=== PATIENT | female | born 1980 | race Caucasian/White ===

== ENCOUNTER → 2018-01-07 | Outpatient (CLI) | payer MEDICAID | LOC: CIMAGING 13:05 | PROVIDERS: ATTEND Nurse Practitioner | DX: N63.22 Unspecified lump in the left breast, upper inner quadrant (principal) | CPT/HCPCS: 76641-PO ==

== ENCOUNTER → 2018-03-06 | Outpatient (CLI) | payer MEDICAID ==
[~2018-03-06] MED LIST: BACITRACIN 50,000 UNITS/10 ML SYR IRR ONE; BACITRACIN ZINC 14.2 GM OINTTUBE TP ONE; BUPIVACAINE 0.25% 30 ML SDV ONE; GADOBUTROL 10 ML VIAL IVP ONE; GENTAMICIN SULFATE 80 MG/2 ML VIAL ONE; THROMBIN (BOVINE) 20,000 UNIT SPRAY TP ONE; ceFAZolin 1 GM/5 ML SYR ONE
== END ==
LOC: FIMAGING 11:56
PROVIDERS: ATTEND Surgery
DX: C50.412 Malignant neoplasm of upper-outer quadrant of left female breast (principal)
CPT/HCPCS: 0159T; 77059; A9585; C8908; J1580

== ENCOUNTER 2018-03-07 09:31 | Observation (INO) | payer BC, OTHER, MEDICAID ==
--- NOTE | 2018-03-03 18:01 | GHP ---
DATE OF ADMISSION: 03/07/2018 PREOPERATIVE DIAGNOSIS: Left breast invasive ductal carcinoma. HISTORY OF PRESENT ILLNESS: The patient is a 37-year-old woman with a new diagnosis of left breast c ancer. She first noticed a palpable mass in her left upper outer breast 3 months ago. She had a vane mogram and ultrasound in December, which showed a lobulated solid irregular hypoechoic mass 4.5 x 2.4 x 3.3 cm at the 1 o'clock position 6 cm from the nipple. There were additionally 2 other lesions loca tadeo 1.1 cm medial to the larger lesion. She has a large left axillary lymph node measuring 2.1 x 0.2 cm, probably benign. She had ultrasound-guided biopsy on 02/15/2018, which showed invasive ductal c arcinoma, ER positive, TX positive, HER-2/ivan negative. Ki 67 less than 5%. She previously took bir th control for 21 years and discontinued upon diagnosis. She has a history of fibrocystic breast dis ease. She has a maternal great aunt who was diagnosed with breast cancer at age 55. Her father with B-cell lymphoma at 38. Maternal grandmother had multiple myeloma. Maternal grandfather with brain, pancreatic, prostate, and colon cancer. Her 1st menstrual period at age 15 and she continues to men struate regularly monthly. She has never been . She had genetic testing done which was nega tive for BRCA1 or 2. There was a variant of unknown significance of the POLE mutation. We attempted to order a breast MRI prior to surgery, but this was not authorized. Her oncologist is Dr. Chapin mathews. PAST MEDICAL HISTORY: Migraine headaches. PAST SURGICAL HISTORY: None. MEDICATIONS: No prescription. ALLERGIES: Amoxicillin and sulfa cause hives. FAMILY HISTORY: Cancer as above, coronary artery disease. SOCIAL HISTORY: She is . 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 She reports occasional alcohol u se. No tobacco or recreational drug use. REVIEW OF SYSTEMS: A 10-point review of systems negative aside from HPI. PHYSICAL EXAMINATION: GENERAL: A pleasant, well-developed, well-nourished woman in no acute distres s. HEENT: Normocephalic, atraumatic. No hearing deficits. Pupils equal and round. No scleral ict erus. Mucous membranes moist. NECK: Trachea midline. RESPIRATORY: No increased work of breathing . Clear to auscultation bilaterally. CARDIOVASCULAR: Regular rate and rhythm. No peripheral edema . BREASTS: Exam performed in upright and supine position, evidence of previous biopsy left upper ou ter quadrant, palpable mass. No overlying skin changes. No other palpable masses bilaterally. LYMP HS: Soft palpable mass of left axilla. No right axillary lymphadenopathy. No supraclavicular or ce rvical lymphadenopathy. SKIN: Warm and dry. PSYCH: Mood and affect normal. NEURO: Grossly intac t. IMPRESSION AND PLAN: A 37-year-old woman with new diagnosis of invasive ductal carcinoma of left upp er outer quadrant, palpable. MRI was not obtained. She desires mastectomy with reconstruction. She will undergo a left mastectomy with sentinel lymph node biopsy, possible axillary dissection, follow ed by reconstruction by Dr. Thang Miller. We discussed risks of surgery, including, but not limited t o, heart attack, stroke, blood clots or . We discussed risk of infection, bleeding, damage to s urrounding structures, lymphedema, need for additional procedures, and alteration in cosmesis. She u nderstands the risks and would like to proceed. She will receive antibiotics on-call to the operatin g room. She will stay in overnight observations. Patient additionally seen by Dr. Hlai Thayer. /[id number]/MODL
[2018-03-07] MEDS ORDERED: BUPIVACAINE 0.25% 30 ML SDV ONE ×2 (09:39→13:21)
[2018-03-07] MEDS ORDERED: GENTAMICIN SULFATE 80 MG/2 ML VIAL ONE (09:39)
[2018-03-07] MEDS ORDERED: BACITRACIN 50,000 UNITS/10 ML SYR IRR ONE (09:39)
[2018-03-07] MEDS ORDERED: ceFAZolin 1 GM/5 ML SYR ONE (09:39)
[2018-03-07] MEDS ORDERED: BACITRACIN ZINC 14.2 GM OINTTUBE TP ONE (09:39)
[2018-03-07] MEDS ORDERED: ceFAZolin 2 GM/DEXTROSE 100 ML IV ONE (11:04)
[2018-03-07] MEDS ORDERED: LR 1,000 ML IV ONE (11:05)
--- NOTE | 2018-03-07 11:37 | PDHPUP ---
History & Physical Update H&P update statement: This history and physical update is based on an assessment of the patient which was completed after admission or registration (within 24 hours), but prior to the surgery/procedure. H&P update: H&P reviewed & patient examined, changes noted (question involvement chest wall on MRI)
[2018-03-07] MEDS ORDERED: MIDAZOLAM 2 MG/2 ML VIAL IVP ONE (12:10)
--- NOTE | 2018-03-07 12:10 | PDANEPAE ---
ANE Past Medical History - Cardiovascular History Hx Hypertension: No Hx Arrhythmias: No Hx Chest Pain: No Hx Coronary Artery / Peripheral Vascular Disease: No Hx CHF / Valvular Disease: No Hx Palpitations: No - Pulmonary History Hx COPD: No Hx Asthma/Reactive Airway Disease: No Hx Recent Upper Respiratory Infection: No Hx Oxygen in Use at Home: No Hx Sleep Apnea: No Sleep Apnea Screening Result - Last Documented: Negative - Neurologic History Hx Cerebrovascular Accident: No Hx Seizures: No Hx Dementia: No Neurologic History Comment: migraines with aura's - Endocrine History Hx Diabetes: No Hypothyroid: Yes Hyperthyroid: No Obesity: no Endocrine History Comment: new hypothyroid dx. hypoglycemic - Renal History Hx Renal Disorders: Yes Renal History Comment: frequency - Liver History Hx Hepatic Disorders: No - Neurological & Psychiatric Hx Hx Neurological and Psychiatric Disorders: No - Cancer History Hx Cancer: Yes Cancer History Comment: breast currently - Congenital Disorder History Hx Congenital Disorders: No - GI History GERD: no Hx Gastrointestinal Disorders: No - Other Health History Other Health History: wears glasses/ contacts. new symptoms of eczema - Chronic Pain History Chronic Pain: No - Surgical History Prior Surgeries: n/a ANE Review of Systems Review of Systems: - Exercise capacity Exercise capacity: >=4 METS METS (RN): 4 METS ANE Patient History - Allergies Allergies/Adverse Reactions: amoxicillin Allergy (Verified 02/19/18 11:01) Hives Penicillins Allergy (Verified 02/19/18 11:37) Hives Sulfa (Sulfonamide Antibiotics) Allergy (Verified 02/19/18 11:01) Hives - Home Medications Home Medications: Herbals/Supplements -Info Only 1 ea PO DAILY 02/19/18 [Last Taken 02/28/18] Ibuprofen [Motrin (*)] 200 mg PO DAILY PRN 02/19/18 [Last Taken 02/28/18] Multivitamins [Multivitamin (*)] 1 each PO DAILY 02/19/18 [Last Taken 02/28/18] - NPO status NPO Since - Liquids (Date): 03/07/18 NPO Since - Liquids (Time): 09:00 NPO Since - Solids (Date): 03/06/18 NPO Since - Solids (Time): 22:30 - Anes Hx Hx Anesthesia Complications (with details): no H/O anesthesia - Smoking Hx Smoking Status: Never smoked - Alcohol Use Alcohol Use: Rarely - Family Anes Hx Family Anes Hx: neg - N/A Family Hx Anesthesia Complications: none ANE Labs/Vital Signs - Vital Signs Blood Pressure: 115/85 Heart Rate: 50 Respiratory Rate: 16 O2 Sat (%): 97 Height: 165.1 cm Weight: 63.503 kg ANE Physical Exam - Airway Neck exam: FROM Mallampati Score: Class 3 Mouth exam: normal dental/mouth exam - Pulmonary Pulmonary: no respiratory distress, no rales or rhonchi, clear to auscultation - Cardiovascular Cardiovascular: regular rate and rhythym, no murmur, rub, or gallop - ASA Status ASA Status: II ANE Anesthesia Plan Anesthesia Plan: general endotracheal anesthesia Total IV Anesthesia: No
[2018-03-07] MEDS ORDERED: fentaNYL 100 MCG/2 ML INJ ONE (13:46)
[2018-03-07] MEDS ORDERED: PROPOFOL 200 MG/20 ML VIAL ONE (13:47)
[2018-03-07] MEDS ORDERED: ONDANSETRON 4 MG/2 ML VIAL ONE (13:47)
[2018-03-07] MEDS ORDERED: ROCURONIUM 50 MG/5 ML VIAL ONE (13:48)
[2018-03-07] MEDS ORDERED: LIDOCAINE 2% 5 ML SDV ONE (13:51)
[2018-03-07] MEDS ORDERED: PROPOFOL/EMULSION 500 MG/50 ML BOTTLE IV ONE (14:05)
[2018-03-07] MEDS ORDERED: DEXAMETHASONE 4 MG/ML VIAL ONE ×3 (14:13)
[2018-03-07] MEDS ORDERED: NEOSTIGMINE METHYLSULFATE 5 MG/5 ML SYR ONE (15:17)
[2018-03-07] MEDS ORDERED: GLYCOPYRROLATE 0.2 MG/1 ML VIAL ONE ×3 (15:17)
[2018-03-07] MEDS ORDERED: KETOROLAC 30 MG/1 ML SDV ONE (15:18)
--- NOTE | 2018-03-07 15:54 | GOP ---
DATE OF OPERATION: 03/07/2018 SURGEON: Nestor Miller Jr., MD [place] FACTOR: Milo Smith CST, by surgeon request. ANESTHESIA: General inhalational anesthetic ANESTHESIOLOGIST: Ignacio Mello DO. PREOPERATIVE DIAGNOSIS: Left breast cancer. POSTOPERATIVE DIAGNOSIS: Left breast cancer. PROCEDURE PERFORMED: Left breast reconstruction with tissue rn intake and AlloDerm following nipple s paring mastectomy by Dr. Hali Thayer. FINDINGS: ESTIMATED BLOOD LOSS: During reconstruction: 10 cc. INDICATIONS: Lucia is a 37-year-old white female referred from Dr. Thayer after being diagnosed w ith a large left breast cancer. She was deemed a good candidate for a nipple sparing mastectomy in c onjunction with a sentinel lymph node biopsy. She was deemed an excellent candidate for immediate ti ssue rn intake reconstruction in a prepectoral plane and was taken the operation for that procedure. She was taken the operating room with Dr. Thayer in conjunction for the above procedures. DESCRIPTION OF PROCEDURE: After the risks and benefits of procedure were explained to the patient an d formal operative consent was obtained, she was taken to the operating room by Dr. Thayer where an un complicated left nipple sparing mastectomy was performed. She had positive subareolar margins. A 2n d frozen section was taken. The pocket was irrigated with normal saline. She was redraped with ster ile towels. New instrumentation was utilized, and Allergan 133 FX-12-T 450 cc tissue rn intake was th oroughly tested and filled with 360 cc of air. It was wrapped with AlloDerm thick acellular dermis g raft that had been rinsed and soaked in triple antibiotic saline. It was wrapped on the back table. The pocket was irrigated a 2nd time with triple antibiotic saline solution. The AlloDerm wrapped ti ssue rn intake was then placed into the breast pocket and sutured into place down to the chest wall us ing 2-0 PDS suture. A 15 round drain was placed exiting through a separate lateral stab incision. T wo-layer closure was performed on the mastectomy incision. [place] lymph node mapping was still pen ding, and patient was turned back over to Dr. Thayer pending further evaluation of the lymph nodes. IMPLANTS: Tissue rn intake Allergan 133 FX-12-T 450 cc device filled with 360 cc. DRAINS: 1 FREDDY drain placed. COMPLICATIONS: No complications. /[id number]/MODL
--- NOTE | 2018-03-07 16:09 | GOP ---
DATE OF OPERATION: 03/07/2018 SURGEON: Hali Thayer MD TUBING SUPERVISOR: MIRELLA Galloway ANESTHESIA: General. ANESTHESIOLOGIST: Ignacio Mello DO PREOPERATIVE DIAGNOSIS: Left breast invasive ductal carcinoma, upper outer quadrant. POSTOPERATIVE DIAGNOSIS: Left breast invasive ductal carcinoma, upper outer quadrant. PROCEDURE PERFORMED: Left nipple-sparing mastectomy and left axillary dissection FINDINGS: positive sentinel lymph nodes, positive nipple pad SPECIMENS: Left nipple pad, left mastectomy, left sentinel lymph nodes, and left nipple pad with new margin inked anterior. ESTIMATED BLOOD LOSS: 50 cc. INDICATIONS: The patient is a 37-year-old woman with invasive ductal carcinoma of her breast. She presents for mastectomy. DESCRIPTION OF PROCEDURE: The patient was brought into the operating room, placed supine on the table and general anesthesia was administered. Her breasts were prepped and draped in the usual sterile fashion. I made an inframammary incision and I created a skin flap. I used uterine dilators to help create the plane. I continued my flap to the level of the nipple. I then removed the breast from the pectoralis, paying careful attention to the area beneath the tumor. There was no evidence of tumor penetrating into the pectoralis muscle. My dissection occurred to the sternum, clavicle, inframammary fold, and mid-axillary line. It was inked green anterior, red superior, yellow medial, blue inferior, orange lateral, black posterior, was submitted to Pathology. I then used the sentinel node probe to identify sentinel nodes in her axilla. There were nodes grouped closely together that were firm. I excised these and sent these to Pathology for frozen. The results returned 2 with macroscopic disease and the other with microscopic disease. The background was quiet. Hemostasis was achieved. At this time, we then received notification that the nipple pad was positive. Dr. Miller was then able to take another area of tissue underneath the nipple, and the anterior was inked green. This was submitted to Pathology for frozen. This was also positive. However, Dr. Miller was concerned that the flaps would be compromised if the nipple areolar complex was taken at this time. I then removed a packet of tissue from her left axilla while protecting the axillary vein, long thoracic and thoracodorsal bundle from harm. Hemostasis was achieved. Dr. Miller then completed his portion of the operation. /[id number]/MODL MTDD
[2018-03-07] MEDS ORDERED: HYDROCODONE/APAP 5/325 TAB PO PRN (16:19)
[2018-03-07] MEDS ORDERED: fentaNYL 100 MCG/2 ML INJ IVP PRN (16:19)
[2018-03-07] MEDS ORDERED: ACETAMINOPHEN 500 MG TAB PO PRN (16:19)
[2018-03-07] MEDS ORDERED: NALOXONE HCL 0.4 MG/ML INJ IVP PRN (16:19)
[2018-03-07] MEDS ORDERED: PROMETHAZINE HCL 25 MG/ML INJ IVP PRN (16:19)
[2018-03-07] MEDS ORDERED: oxyCODONE IR 5 MG TAB PO PRN (16:19)
[2018-03-07] MEDS ORDERED: PHENYLEPHRINE HCL 100 MCG/ML SYR IVP PRN (16:19)
[2018-03-07] MEDS ORDERED: LR 500 ML IV PRN (16:19)
[2018-03-07] MEDS ORDERED: ONDANSETRON 4 MG/2 ML VIAL IVP PRN ×2 (16:19→17:30)
[2018-03-07] MEDS ORDERED: HYDROmorphONE/DILAUDID 2 MG/ML INJ IVP PRN (16:19)
--- NOTE | 2018-03-07 16:20 | POSTANESTH ---
Post Anesthetic Evaluation Cardiovascular Status: Similar to Pre-Op Cond (sinus bradycardia (pt baseline)) Respiratory Status: Normal, Stable Level of Consciousness/Mental Status: Can Participate in Eval Pain Control: Adequate, Prn Tx Ordered Nausea/Vomiting Control: Adequate, Prn Tx Ordered Complications Possibly Related to Anesthesia: None Noted
[2018-03-07] MEDS ORDERED: oxyCODONE IR 5 MG TAB ONE (16:55)
[2018-03-07] MEDS ORDERED: ACETAMINOPHEN 500 MG TAB ONE (16:55)
[2018-03-07] MEDS ORDERED: ONDANSETRON DISINTEGRATING 4 MG TAB PO PRN (17:30)
[2018-03-07] MEDS ORDERED: diphenhydrAMINE 25 MG CAP PO PRN (17:30)
[2018-03-07] MEDS ORDERED: ACETAMINOPHEN 325 MG TAB PO PRN (17:30)
[2018-03-07] MEDS ORDERED: HYDROmorphONE/DILAUDID 1 MG/ML INJ IVP PRN (17:31)
[2018-03-07] MEDS ORDERED: IBUPROFEN 600 MG TAB PO PRN (17:32)
[2018-03-07] MEDS: oxyCODONE IR 5 MG TAB PO PRN (20:13)
[2018-03-08] MEDS: oxyCODONE IR 5 MG TAB PO PRN (04:00)
--- NOTE | 2018-03-08 06:57 | SOAPPROG ---
SOAP Progress Note Assessment/Plan: Assessment: POD #1 s/p L mastectomy with L axillary dissection L nipple pad positive for cancer which will need to be addressed in future Doing well DC home with drains F/U with Dr. Miller as tony Thayer in 2 weeks S:Pain controlled. Sore Sitting in bed, appears well CTAB RRR Flap viable FREDDY drains with serosanguinous fluid Plan: 03/08/18 06:55 Objective: Vital Signs Temp Pulse Resp BP Pulse Ox 36.7 C 54 L 16 100/60 94 03/08/18 03:32 03/08/18 03:32 03/08/18 03:32 03/08/18 03:32 03/08/18 03:32 03/07/18 03/08/18 03/09/18 05:59 05:59 05:59 Intake Total 2550 Output Total 2590 Balance -40 ICD10 Worksheet Patient Problems: Problems Problem Status Onset Breast cancer Acute - ICD10 Problem Qualifiers (1) Breast cancer
[2018-03-08 08:35] VITALS: BP 107/62
--- NOTE | 2018-03-08 09:14 | ASDISCHSUM ---
Discharge Information Plan Status:Home with Home Health Medically Cleared to Leave:03/08/2018 Discharge Date:03/08/2018 CM D/C Disposition:Home, Routine, Self-Care ADT D/C Disposition: Projected Discharge Date:03/08/2018 Transportation at D/C: Discharge Delay Reason: Follow-Up Date:03/08/2018 Discharge Slot: Final Diagnosis: Placement Information Patient Contact Information Contact Name:ALEJANDRA Relationship:Other Address: Work Phone: City: [facility] Phone: State/Zip Code: Email: Financial Information Financial Class:Medicaid Primary Plan Desc:MEDICA[employer] HE[employer] Primary Plan Number:[id number] Secondary Plan Desc: Secondary Plan Number: Assessment Information Intervention Information
--- NOTE | 2018-03-08 09:18 | ASMTCMCOM ---
CM Note CM Note Notes: Chart reviewed for dc planning purposes. 37 year old female patient s/p left mastectomy. She has been medically cleared for dc to home with no needs identified. Plan: Home Independent. Date Signed: 03/08/2018 09:18 AM Electronically Signed By:Roxi Emery RN
--- NOTE | 2018-03-13 09:01 | GDS ---
ADMITTING DIAGNOSIS: Left breast invasive ductal carcinoma. SECONDARY DIAGNOSIS: Migraine headaches. REASON FOR ADMISSION: The patient is a 37-year-old woman with a new diagnosis of left breast cancer. She desires mastectomy with reconstruction. She is admitted for planned surgical intervention, observation. HOSPITAL COURSE: She was taken to the operating room on 03/07/2018, by Dr. Hali Thayer for a left mastectomy with left axillary dissection followed by reconstruction by Dr. Miller. FREDDY drains were placed. On postoperative day #1 her pain was well controlled with oral pain medications. She was tolerating regular diet and ambulating independently. She was ready for discharge home. Of note, at the time of the surgery, the left nipple pad was positive for cancer , but this was discussed and will be addressed in the future. DISCHARGE CONDITION: She is being discharged home in stable condition. Pain is controlled. Tolerating regular diet. Ambulating independently. DISCHARGE INSTRUCTIONS AND FOLLOWUP: She will follow up with Dr. Miller as previously scheduled. She will follow up with Dr. Thayer in 2 weeks, and she will report FREDDY drain output daily. Call with any worsening symptoms, questions , or concerns. DISCHARGE MEDICATIONS: All medications were prescribed by Dr. Miller preop. Instructed to resume home medications. Please see EMR for further details. /[id number]/MODL MTDD
== END 2018-03-08 11:52 | disposition home or self-care (01) ==
LOC: F3N 10:23 → F1N 17:52
PROVIDERS: ADMIT Surgery; ATTEND Surgery
PROC: 3E0W3KZ Introduction of Other Diagnostic Substance into Lymphatics, Percutaneous Approach (ICD-10-PCS; 2018-03-07)
PROC: 07B60ZX Excision of Left Axillary Lymphatic, Open Approach, Diagnostic (ICD-10-PCS; principal; 2018-03-07 13:00)
PROC: 0HTU0ZZ Resection of Left Breast, Open Approach (ICD-10-PCS; principal; 2018-03-07 13:00)
PROC: 0HHU0NZ Insertion of Tissue Expander into Left Breast, Open Approach (ICD-10-PCS; 2018-03-07 13:00)
PROC: 0HRUXKZ (ICD-10-PCS; 2018-03-07 13:00)
DX: C50.412 Malignant neoplasm of upper-outer quadrant of left female breast (principal); C50.012 Malignant neoplasm of nipple and areola, left female breast; C77.3 Secondary and unspecified malignant neoplasm of axilla and upper limb lymph nodes; G43.909 Migraine, unspecified, not intractable, without status migrainosus; Z17.0 Estrogen receptor positive status [ER+]; Z80.9 Family history of malignant neoplasm, unspecified; Z23 Encounter for immunization
CPT/HCPCS: 15777; 19303; 19357; 38525; 78195; 90471; A9520; G0378; G0008; J0690; J1100; J1580; J1885; J2250; J2405; J2704; J2710; J3010; Q4116

== ENCOUNTER 2018-03-25 10:37 | Day surgery (SDC) | payer BC, OTHER, MEDICAID ==
--- NOTE | 2018-03-24 15:49 | GHP ---
DATE OF ADMISSION: 03/25/2018 DATE OF SURGERY: 03/25/18. PREOP DIAGNOSIS: Left breast invasive ductal carcinoma. HISTORY OF PRESENT ILLNESS: 37-year-old woman with a new diagnosis of left breast cancer. She underwent left mastectomy with left axillary dissection on 03/07/2018. She will require a port for chemotherapy. Her oncologist is Dr. Chapin Quiñones. PAST MEDICAL HISTORY: Migraine headaches. PAST SURGICAL HISTORY: Mastectomy as above. ALLERGIES: Amoxicillin and sulfa. FAMILY HISTORY: Breast cancer, B-cell lymphoma, multiple myeloma, and other cancers. Coronary artery disease. SOCIAL HISTORY: She recently opened a [employer]. She reports occasional alcohol use. No tobacco or recreational drug use. REVIEW OF SYSTEMS: 10-point review of systems is negative aside from HPI. PHYSICAL EXAMINATION: GENERAL: Well-developed, well-nourished woman in no acute distress. HEENT: Normocephalic, atraumatic. No hearing deficits. Pupils equal and round. No scleral icterus. Mucous membranes moist. NECK: Trachea midline. RESPIRATORY: Clear to auscultation bilaterally. No increased work of breathing. CARDIOVASCULAR: Regular rate and rhythm. No peripheral edema. BREASTS: Shows well-healing left mastectomy with a temporary tissue sap pi architect in place. No overlying skin changes. SKIN: Warm and dry. PSYCH: Mood and affect normal. NEURO: Grossly intact. IMPRESSION AND PLAN: 37-year-old woman with left breast invasive ductal carcinoma, pathologic stage T2 pN2a. She will require a port for chemotherapy. We discussed risks of surgery, including, but not limited to, heart attack, stroke, blood clots, or . We discussed risk of infection, bleeding, need for device removal, or pneumothorax. She understands the risks and would like to proceed. She will get a chest x-ray immediately in recovery room. This is an outpatient procedure. She will receive antibiotics on-call to the operating room. /[id number]/MODL MTDD
[2018-03-25] MEDS ORDERED: ceFAZolin 2 GM/DEXTROSE 100 ML IV ONE (10:49)
[2018-03-25] MEDS ORDERED: LIDOCAINE 1% 2 ML INJ ID PRN (10:53)
[2018-03-25] MEDS ORDERED: LR 1,000 ML IV ONE (10:53)
--- NOTE | 2018-03-25 11:17 | PDHPUP ---
History & Physical Update H&P update statement: This history and physical update is based on an assessment of the patient which was completed after admission or registration (within 24 hours), but prior to the surgery/procedure. H&P update: H&P reviewed & patient examined, no change in patient's condition since H&P completed
[2018-03-25] MEDS ORDERED: MIDAZOLAM 2 MG/2 ML VIAL IVP ONE (11:23)
[2018-03-25] MEDS ORDERED: fentaNYL 100 MCG/2 ML INJ ONE ×2 (11:34→13:21)
[2018-03-25] MEDS ORDERED: PROPOFOL/EMULSION 500 MG/50 ML BOTTLE IV ONE (11:34)
[2018-03-25] MEDS ORDERED: DEXAMETHASONE 4 MG/ML VIAL ONE ×2 (11:35)
[2018-03-25] MEDS ORDERED: ONDANSETRON 4 MG/2 ML VIAL ONE (11:35)
--- NOTE | 2018-03-25 11:47 | PDANEPAE ---
ANE History of Present Illness breast ca ANE Past Medical History - Cardiovascular History Hx Hypertension: No Hx Arrhythmias: No Hx Chest Pain: No Hx Coronary Artery / Peripheral Vascular Disease: No Hx CHF / Valvular Disease: No Hx Palpitations: No - Pulmonary History Hx COPD: No Hx Asthma/Reactive Airway Disease: No Hx Recent Upper Respiratory Infection: No Hx Oxygen in Use at Home: No Hx Sleep Apnea: No Sleep Apnea Screening Result - Last Documented: Negative - Neurologic History Hx Cerebrovascular Accident: No Hx Seizures: No Hx Dementia: No Neurologic History Comment: migraines with aura's - Endocrine History Hx Diabetes: No Hypothyroid: Yes Obesity: no Endocrine History Comment: new hypothyroid dx. hypoglycemic - Renal History Hx Renal Disorders: Yes Renal History Comment: frequency - Liver History Hx Hepatic Disorders: No - Neurological & Psychiatric Hx Hx Neurological and Psychiatric Disorders: No - Cancer History Hx Cancer: Yes Cancer History Comment: breast currently - Congenital Disorder History Hx Congenital Disorders: No - GI History Hx Gastrointestinal Disorders: No - Other Health History Other Health History: wears glasses/ contacts. new symptoms of eczema - Chronic Pain History Chronic Pain: No - Surgical History Prior Surgeries: 03/07/18 left mastectomy, tissue expanders, sentinel node resection with comfort ANE Review of Systems Review of Systems: - Exercise capacity Exercise capacity: >=4 METS METS (RN): 4 METS ANE Patient History - Allergies Allergies/Adverse Reactions: amoxicillin Allergy (Verified 03/25/18 11:15) Hives Penicillins Allergy (Verified 03/25/18 11:15) Hives Sulfa (Sulfonamide Antibiotics) Allergy (Verified 03/25/18 11:15) Hives - Home Medications Home Medications: Herbals/Supplements -Info Only 02/19/18 [Last Taken 03/24/18] Ibuprofen [Motrin (*)] 02/19/18 [Last Taken 03/24/18] Multivitamins [Multivitamin (*)] 02/19/18 [Last Taken 03/24/18] - NPO status NPO Since - Liquids (Date): 03/25/18 NPO Since - Liquids (Time): 09:00 NPO Since - Solids (Date): 03/24/18 NPO Since - Solids (Time): 00:00 - Anes Hx Anes Hx: no prior problems - Smoking Hx Smoking Status: Never smoked - Family Anes Hx Family Anes Hx: none Family Hx Anesthesia Complications: none ANE Labs/Vital Signs - Vital Signs Blood Pressure: 122/79 Heart Rate: 65 Respiratory Rate: 18 O2 Sat (%): 97 Height: 165.1 cm Weight: 63.503 kg ANE Physical Exam - Airway Neck exam: FROM Mallampati Score: Class 1 Mouth exam: normal dental/mouth exam - Pulmonary Pulmonary: no respiratory distress - Cardiovascular Cardiovascular: regular rate and rhythym - ASA Status ASA Status: II ANE Anesthesia Plan Anesthesia Plan: GA with mask
[2018-03-25] MEDS ORDERED: BUPIVACAINE 0.5% 30 ML SDV ONE (11:51)
[2018-03-25] MEDS ORDERED: LABETALOL HCL 5 MG/ML 20 ML MDV IVP PRN (12:39)
[2018-03-25] MEDS ORDERED: ACETAMINOPHEN 500 MG TAB PO PRN (12:39)
[2018-03-25] MEDS ORDERED: METOCLOPRAMIDE 10 MG/2 ML VIAL IVP PRN (12:39)
[2018-03-25] MEDS ORDERED: MEPERIDINE 25 MG/0.5 ML AMP IVP PRN (12:39)
[2018-03-25] MEDS ORDERED: NALOXONE HCL 0.4 MG/ML INJ IVP PRN (12:39)
[2018-03-25] MEDS ORDERED: oxyCODONE IR 5 MG TAB PO PRN (12:39)
[2018-03-25] MEDS ORDERED: LR 500 ML IV PRN (12:39)
[2018-03-25] MEDS ORDERED: fentaNYL 100 MCG/2 ML INJ IVP PRN (12:39)
[2018-03-25] MEDS ORDERED: HYDROmorphONE/DILAUDID 2 MG/ML INJ IVP PRN (12:39)
[2018-03-25] MEDS ORDERED: PROMETHAZINE HCL 25 MG/ML INJ IVP PRN (12:39)
[2018-03-25] MEDS ORDERED: HYDROCODONE/APAP 5/325 TAB PO PRN (12:39)
--- NOTE | 2018-03-25 12:47 | POSTOPPROG ---
Post Op Note Date of Operation: 03/25/18 Surgeon: Hali Thayer Anesthesiologist: seun Anesthesia: IV Sedation Pre-op Diagnosis: breast cancer Post-op Diagnosis: breast cancer Indication: 37 yo with breast cancer will need chemotherapy Procedure: R us IJ port` Findings: tip ra Inf/Abcess present in the surg proc area at time of surgery?: No EBL: Minimal
--- NOTE | 2018-03-25 13:40 | POSTANESTH ---
Post Anesthetic Evaluation Cardiovascular Status: Normal, Stable Respiratory Status: Normal, Stable Level of Consciousness/Mental Status: Can Participate in Eval Pain Control: Adequate, Prn Tx Ordered Nausea/Vomiting Control: Adequate, Prn Tx Ordered Complications Possibly Related to Anesthesia: None Noted
[2018-03-25 15:09] VITALS: BP 116/73
--- NOTE | 2018-03-25 15:17 | GOP ---
DATE OF OPERATION: 03/25/2018 SURGEON: Hali Thayer MD ANESTHESIA: Monitored anesthesia care with IV sedation. ANESTHESIOLOGIST: Dr. FREDDY Hagen PREOPERATIVE DIAGNOSIS: Left breast cancer. POSTOPERATIVE DIAGNOSIS: Left breast cancer. PROCEDURE PERFORMED: Right ultrasound-guided internal jugular PowerPort placement. FINDINGS: Tip in the RA. SPECIMENS: None. ESTIMATED BLOOD LOSS: 10 cc. INDICATIONS: The patient is diagnosed with left-sided breast cancer with positive axillary nodes. She will require a port for chemotherapy. DESCRIPTION OF PROCEDURE: The patient was brought into the operating room, placed supine on the table, and IV sedation was performed. Her bilateral neck and chest were prepped and draped in the usual sterile fashion. I infiltrated the areas with 0.5% Marcaine prior to making incision. Under ultrasound guidance, I identified the internal jugular vein and it was fully compressible. I tried to access it and went deep, and this hit the carotid artery. I withdrew the needle and held pressure. I access the internal jugular vein under ultrasound guidance with dark return of blood. I threaded the guidewire and removed the needle. I created a pocket to accommodate the port in the right chest. I tunneled this up to the insertion site. Under fluoroscopy, I measured the catheter and cut it to size. Using the Seldinger technique, I placed a dilator and sheath over the wire. I removed the wire and the dilator, and threaded the catheter through the sheath. I peeled away the sheath. Placement was confirmed with fluoroscopy. The tip appeared to be a bit deep and so I pulled the port further down into her chest. The port withdrew blood easily and was flushed with heparin. Wound closed with 3-0 Vicryl, followed by 4-0 Monocryl. Dermabond applied. She was awakened in the operating room, transferred to PACU in stable condition. /[id number]/MODL MTDD
== END 2018-03-25 15:05 | disposition home or self-care (01) ==
LOC: FSGY 10:37
PROVIDERS: ATTEND Surgery
DX: C50.412 Malignant neoplasm of upper-outer quadrant of left female breast (principal); Z17.0 Estrogen receptor positive status [ER+]; Z90.12 Acquired absence of left breast and nipple; E03.9 Hypothyroidism, unspecified
CPT/HCPCS: C1788; J0690; J1100; J1642; J2250; J2405; J2704; J3010

== ENCOUNTER → 2018-08-28 | Outpatient (CLI) | payer MEDICAID | LOC: EMCIMAGING 09:25 | PROVIDERS: ATTEND Internal Medicine Hematology & Oncology | DX: Z13.820 Encounter for screening for osteoporosis (principal); N95.8 Other specified menopausal and perimenopausal disorders | CPT/HCPCS: 77080-PN ==